=== PATIENT | female | born 1980 | race Caucasian/White ===

== ENCOUNTER 2017-04-29 16:31 | Emergency (ER) | payer MEDICAID ==
[~2017-04-29] VITALS: Ht 167.6 cm; Wt 55.5 kg
[~2017-04-29 16:31] MED LIST: NO HOME MEDS
[2017-04-29 16:33] VITALS: BP 107/64
== END 2017-04-29 16:54 | disposition home or self-care (01) ==
LOC: ER 16:31
DX: T85.848A Pain due to other internal prosthetic devices, implants and grafts, initial encounter (principal); F15.10 Other stimulant abuse, uncomplicated
CPT/HCPCS: 99281